=== PATIENT | female | born 1980 | race Caucasian/White ===

== ENCOUNTER 2017-06-25 20:58 | Inpatient (IN) | payer BC, OTHER ==
[2017-06-25] VITALS (15 sets, daily range): BP systolic 129–146; BP diastolic 63–79
[~2017-06-25] VITALS: Ht 167.6 cm; Wt 85.9 kg
[~2017-06-25 20:58] MED LIST: DCS100C PO; DOCU100C37 PO; IBP800T PO; IBUP-1780 PO; OXYC-272 PO; OXYC-465 PO; PREN1TAB39 PO
[2017-06-25] MEDS ORDERED: D5 LR IV SOLUTION 1,000 ML IV SCH (21:07)
[2017-06-25] MEDS ORDERED: SUFENTA 0.6MCG/ML BUPIVA 0.125 100 ML ONE ×2 (21:32→22:37)
[2017-06-25 21:41] LABS: BASOPHILS % (AUTO) 0 % (0-10); EOSINOPHILS # (AUTO) 0.1 10^3/uL (0.0-0.3); EOSINOPHILS % (AUTO) 1 % (0-10); HEMATOCRIT 33 % (35-52); HEMOGLOBIN 11.5 G/DL (11.5-16.0); LYMPHOCYTES # (AUTO) 2.2 X 10^3 (1.0-4.0); LYMPHOCYTES % (AUTO) 24 % (12-44); MEAN CORPUSCULAR HEMOGLOBIN 30 PG (25-34); MEAN CORPUSCULAR HGB CONC 35 G/DL (32-36); MEAN CORPUSCULAR VOLUME 86 FL (80-99); MEAN PLATELET VOLUME 10.4 FL (7.4-10.4); MONOCYTES # (AUTO) 0.9 X 10^3 (0.0-1.0); MONOCYTES % (AUTO) 10 % (0-12); NEUTROPHILS % (AUTO) 66 % (42-75); PLATELET COUNT 201 10^3/uL (130-400); RED BLOOD COUNT 3.88 10^6/uL (4.35-5.85); RED CELL DISTRIBUTION WIDTH 12.9 % (10.0-14.5); WHITE BLOOD COUNT 9.1 10^3/uL (4.3-11.0)
[2017-06-25] MEDS ORDERED: CATHETER FLUSH 10 ML SYR IV SCH (22:00)
[2017-06-25] MEDS ORDERED: OXYTOCIN/NORMAL SALINE 500 ML IV SCH (22:04)
--- NOTE | 2017-06-25 22:11 | History & Physical ---
History and Physical Date Seen by Provider: Jun 25, 2017 Time Seen by Provider: 22:09 this patient is a 36-year-old white female with a due date of June 29. She presented this evening with regular contractions pressure and pain. She denies rupture membranes or bleeding. GBS culture negative. She had no problems with this . Allergies are to sulfa drugs Medications are vitamins and zinc Medical and social histories are per the antepartum record HEENT exam is normal Neck is supple no lymphadenopathy no thyromegaly Abdomen is gravid soft nontender nondistended Extremities show no clubbing or cyanosis. There is no Homans sign. Pelvic exam per the nurse shows a cervix 3 cm dilated with a bulging bag and a vertex presentation Laboratory Tests 06/25/17 21:20 CBC was normal Assessment and plan term at 39+ weeks' gestation in a grand multipara. This patient requested an epidural which is now been placed. We anticipate a vaginal delivery. 39 week in labor Allergies and Home Medications Allergies Coded Allergies: Sulfa (Sulfonamides) (Verified Allergy, Unknown, 06/20/06) Home Medications Docusate Sodium 100 Mg Capsule, 100 MG PO BID, #60 Prescribed by: MARTHA SMITH on 02/03/15 1708 Ibuprofen 800 Mg Tablet, 800 MG PO Q6H, #60 Prescribed by: MARTHA SMITH on 02/03/15 1708 Oxycodone HCl/Acetaminophen 1 Each Tablet, 1-2 TAB PO Q4H PRN for PAIN, #60 Prescribed by: MARTHA SMITH on 02/03/15 1708 Vits W-Ca,Fe,Fa(<1MG) 1 Each Tablet, 1 EACH PO DAILY, (Reported) MARTHA REYES MD Jun 25, 2017 10:11 pm
[2017-06-25] MEDS ORDERED: TETANUS,DIPTH,PERTUSS P/F (BOOSTRIX) 0.5 ML VIAL IM ONE (22:15)
[2017-06-25] MEDS ORDERED: BENZOCAINE/MENTHOL (DERMOPLAST) 56 ML CAN TP PRN (22:15)
[2017-06-25] MEDS ORDERED: ONDANSETRON 4 MG/2 ML (SDV) Z0FRAN IVP PRN ×2 (22:15)
[2017-06-25] MEDS ORDERED: KETOROLAC 30 MG/ML VIAL IV SCH (22:15)
[2017-06-25] MEDS ORDERED: fentaNYL INJECTION 100 MCG/2 ML AMP ONE (22:37)
[2017-06-25] MEDS ORDERED: BUPIVACAINE 0.25% 30 ML (SENSORCAINE) VIAL ONE (22:37)
[2017-06-25] MEDS ORDERED: LACTATED RINGERS 1,000 ML IV SCH (23:02)
[2017-06-25] MEDS ORDERED: NALOXONE 0.4 MG/ML 1 ML (NARCAN) VIAL IV PRN ×2 (23:15)
[2017-06-25] MEDS ORDERED: ONDANSETRON 4 MG/2 ML (SDV) Z0FRAN IV PRN (23:15)
[2017-06-25] MEDS ORDERED: diphenhydrAMINE 50 MG/ML INJ (BENADRYL) IV PRN (23:15)
[2017-06-25] MEDS ORDERED: METOCLOPRAMIDE INJ 10 MG/2 ML (REGLAN) IV PRN (23:15)
[2017-06-25] MEDS ORDERED: EPIDURAL (SUFENTA 0.6MCG/ML BUPIVA 0.125%) 100 ML BAG EPI SCH (23:15)
[2017-06-26] VITALS (21 sets, daily range): BP systolic 108–145; BP diastolic 56–80
--- NOTE | 2017-06-26 05:21 | OPERATIVE REPORT ---
DATE OF SERVICE: 06/26/2017 The patient delivered by term spontaneous vaginal delivery of viable male infant with Apgars of 8 and 9 at 1 and 5 minutes respectively, weight of 9 pounds 2 ounces. Cord blood pH is 7.37 and a time of 0252. The patient delivered over an intact perineum with 2 pushes under epidural analgesia. The was bulb suctioned on delivery of the head and again on completion of delivery. The umbilical cord was doubly clamped. Father cut the cord, the baby was passed to mom's abdomen. The cervix, vagina, rectum and perineum were examined and found intact. The placenta delivered spontaneously Valenzuela and was normal with a 3-vessel cord. There was a 6 mm exophytic lesion at the junction of the right buttock with the right posterior inner thigh, that was consistent with an acrochordon. The patient had good analgesia at that point from her epidural and had requested removal of this lesion, which was done sharply. The lesion was consistent with an acrochordon. that site was touched with silver nitrate and covered with a sterile dressing. Sponge and needle counts were correct on completion of delivery and removal of the skin lesion. Estimated blood loss for the delivery was around 200 mL. The patient tolerated the delivery well and remained in the LDR for recovery. The baby remained with the mom. Job ID: [id number] DocumentID: [id number] Dictated Date: 06/26/2017 03:17:10 Information Security Director Date: 06/26/2017 05:20:13 Dictated By: MARTHA REYES MD MTDD
[2017-06-26] MEDS ORDERED: IBUPROFEN 800 MG (MOTRIN) TAB PO ONE ×2 (06:59→12:58)
[2017-06-26] MEDS: IBUPROFEN 800 MG (MOTRIN) TAB PO SCH ×3 (07:00→20:42)
--- NOTE | 2017-06-26 07:52 | Progress Note-Standard ---
Standard Progress Note Progress Notes/Assess & Plan Date Seen by Provider: Jun 26, 2017 Time Seen by Provider: 07:51 Progress/Assessment & Plan this patient is without complaint. She is ambulating, voiding, tolerating by mouth well, and has good pain control. She denies chest pain, denies shortness of breath, denies headache, denies nausea vomiting. the abdomen is benign. The fundus is firm below the umbilicus nontender. Extremities show no clubbing cyanosis. There is no Homans sign. Assessment and plan now by 3-4 hours. Patient is doing well. Patient will have routine convalescence. MARTHA REYES MD Jun 26, 2017 7:52 am
[2017-06-26] MEDS ORDERED: oxyCODONE/APAP 10/325MG (PERCOCET 10) TABLET PO PRN (08:30)
[2017-06-26] MEDS: DOCUSATE SODIUM 100 MG (COLACE) CAP PO SCH ×2 (09:10→20:41)
--- NOTE | 2017-06-26 11:09 | Anesthesia-Regional Post-Op ---
Regional Patient Condition Mental Status: Alert, Oriented x3 Circulation: Same as Pre-Op Headache: Absent Sensation: Full Recovery Motor Block: Absent Post Op Complications Complications None Follow Up Care/Instructions Patient Instructions None needed. Anesthesia/Patient Condition Patient is doing well, no complaints, stable vital signs, no apparent adverse anesthesia problems. No complications reported per nursing. NELL HEATH CRNA Jun 26, 2017 11:09
[2017-06-26] MEDS ORDERED: IBUP-1780 PO (14:48)
[2017-06-26] MEDS ORDERED: DOCU100C37 PO (14:48)
[2017-06-26] MEDS ORDERED: OXYC-465 PO (14:48)
--- NOTE | 2017-06-26 14:50 | Discharge Instructions ---
Discharge Instructions Discharge Medications New, Converted or Re-Newed RX: RX on Chart Patient Instructions Patient Instructions: as directed Return to The Hospital For: as directed Activity & Diet Discharge Diet: No Restrictions Activity as Tolerated: No Orders-Post D/C & Referrals Follow Up Appt: Call to make follow up appt. for patient in 4 weeks. Activity Per routine post vaginal delivery instructions. Diet as tolerated Patient may shower or tub bathe as desired. MARTHA REYES MD Jun 26, 2017 2:50 pm
--- NOTE | 2017-06-26 14:53 | Progress Note-Standard ---
Standard Progress Note Progress Notes/Assess & Plan Date Seen by Provider: Jun 26, 2017 Time Seen by Provider: 14:52 Progress/Assessment & Plan this patient is without complaint. She is ambulating, voiding, tolerating by mouth well, and has good pain control. She denies chest pain, denies shortness of breath, denies headache, denies nausea vomiting. the abdomen is benign. The fundus is firm below the umbilicus nontender. Extremities show no clubbing cyanosis. There is no Homans sign. Assessment and plan now by 3-4 hours. Patient is doing well. Patient will have routine convalescence. June 26, 2017 at 1452 p.m. Patient has requested circumcision. Dr. Soni consult me for the procedure. Circumcision was fully discussed including risks and complications recovery and follow-up for the baby. Mom's questions were answered and she did want Me proceed with the circumcision MARTHA REYES MD Jun 26, 2017 14:53
[2017-06-27 00:30] VITALS: BP 116/71
[2017-06-27] MEDS: IBUPROFEN 800 MG (MOTRIN) TAB PO SCH (02:51)
[2017-06-27 05:23] VITALS: BP 93/52
--- NOTE | 2017-06-27 07:22 | Progress Note-Standard ---
Standard Progress Note Progress Notes/Assess & Plan Date Seen by Provider: Jun 27, 2017 Time Seen by Provider: 07:21 Progress/Assessment & Plan this patient is without complaint. She is ambulating, voiding, tolerating by mouth well, and has good pain control. She denies chest pain, denies shortness of breath, denies headache, denies nausea vomiting. the abdomen is benign. The fundus is firm below the umbilicus nontender. Extremities show no clubbing cyanosis. There is no Homans sign. Assessment and plan now by 3-4 hours. Patient is doing well. Patient will have routine convalescence. June 26, 2017 at 1452 p.m. Patient has requested circumcision. Dr. Soni consult me for the procedure. Circumcision was fully discussed including risks and complications recovery and follow-up for the baby. Mom's questions were answered and she did want Me proceed with the circumcision June 27, 2017 Patient without complaint. She is ambulating, voiding, tolerating by mouth well has good pain control she is requesting discharge home. signs are stable. Patient is afebrile. Abdomen is benign. Fundus is firm below the umbilicus. Extreme show no clubbing cyanosis. There is no Homans sign Vital Signs Date Time Temp Pulse Resp B/P (MAP) Pulse Ox O2 Delivery O2 Flow Rate FiO2 06/27/17 05:23 98.2 60 17 93/52 (66) 98 Room Air 06/27/17 00:30 98.3 77 16 116/71 (86) 98 Room Air 06/26/17 20:40 98.2 69 18 124/78 (93) 98 Room Air 06/26/17 14:35 70 18 108/60 (76) Room Air 06/26/17 13:05 98.0 69 18 117/67 (84) 100 Room Air 06/26/17 09:00 98.1 69 20 129/72 (91) 100 Room Air assessment and plan day number 2 status post term spontaneous vaginal delivery doing well. Plan is for discharge home with follow-up in clinic Final Diagnosis repeat delivery MARTHA REYES MD Jun 27, 2017 7:22 am
[2017-06-27] MEDS: DOCUSATE SODIUM 100 MG (COLACE) CAP PO SCH (08:39)
[2017-06-27 08:52] VITALS: BP 117/68
[2017-06-27] MEDS ORDERED: TETANUS,DIPTH,PERTUSS P/F (BOOSTRIX) 0.5 ML VIAL IM ONE (09:42)
== END 2017-06-27 13:55 | disposition home or self-care (01) | DRG 775 ==
LOC: WSo 20:58 → LDRP 21:02 → WSo 21:08 → LDRP 06-26 09:35
PROVIDERS: ADMIT Obstetrics & Gynecology; ATTEND Obstetrics & Gynecology
PROC: 10E0XZZ Delivery of Products of Conception, External Approach (ICD-10-PCS; principal; 2017-06-26)
PROC: 0HB8XZZ Excision of Buttock Skin, External Approach (ICD-10-PCS; 2017-06-26)
DX: O99.72 Diseases of the skin and subcutaneous tissue complicating childbirth (principal); L91.8 Other hypertrophic disorders of the skin; Z37.0 Single live birth; Z3A.39 39 weeks gestation of pregnancy
CPT/HCPCS: 36415; 85025; 86850; 86900; 86901; 90715; 99212

== ENCOUNTER 2019-09-12 07:00 | Inpatient (IN) | payer OTHER ==
[~2019-09-12] VITALS: Ht 170.2 cm; Wt 78.7 kg
[2019-09-12] VITALS (34 sets, daily range): BP systolic 102–145; BP diastolic 56–85
--- NOTE | 2019-09-12 03:11 | Discharge Inst-Surgical ---
Discharge Inst-Surgical Depart Medication/Instructions New, Converted or Re-Newed RX: RX on Chart Consults/Follow Up Patient Instructions: As directed Orders & Referrals Follow Up Appt: Call to make follow up appt. for patient in 4 weeks. Activity Per routine post vaginal delivery instructions. Please call in RX to patient pharmacy. Diet as tolerated Patient may shower or tub bathe as desired. Activity Activity as Tolerated: No Diet Discharge Diet: No Restrictions MARTHA REYES MD Sep 12, 2019 03:11
--- NOTE | 2019-09-12 03:13 | History & Physical ---
History and Physical Date Seen by Provider: Sep 12, 2019 Time Seen by Provider: 07:50 This patient is a 39-year-old grand multipara, , who presents for induction of labor at 40+ weeks gestation. She denies rupture membranes or bleeding. She's had no problems with this . A GBS culture was negative after 35 weeks gestation. Allergies are sulfa drugs Medications are vitamins Medical social and surgical histories are per the antepartum record HEENT exam is normal Neck is supple no lymphadenopathy no thyromegaly Abdomen is gravid soft nontender nondistended Extremities show no clubbing or cyanosis. There is no Homans sign. Pelvic exam is pending Assessment and plan 39+ week gestation in a grand multipara admitted now for induction of labor 39+ week gestation admitted for induction of labor Allergies and Home Medications Allergies Coded Allergies: Sulfa (Sulfonamides) (Verified Allergy, Unknown, 06/20/06) Home Medications Docusate Sodium 100 Mg Capsule, 100 MG PO BID Prescribed by: MARTHA SMITH on 06/26/17 1448 Ibuprofen 800 Mg Tablet, 800 MG PO Q6H Prescribed by: MARTHA SMITH on 06/26/17 1448 Oxycodone HCl/Acetaminophen 1 Each Tablet, 1-2 TAB PO Q4H PRN for PAIN Prescribed by: MARTHA SMITH on 06/26/17 1448 Vits W-Ca,Fe,Fa(<1MG) 1 Each Tablet, 1 EACH PO DAILY, (Reported) Patient Home Medication List Home Medication List Reviewed: Yes MARTHA REYES MD Sep 12, 2019 03:13
--- NOTE | 2019-09-12 07:17 | NUR ---
CARMEN CAPPS presented to unit via ambulation from ED, accompanied by , for scheduled IOL. Pt. weighed, gowned, voided, and to bed. EFHM and TOCO applied, VS taken. Pt. oriented to bed controls, call light, TV, heat, and A/C controls.
[2019-09-12] MEDS ORDERED: OXYTOCIN PRE-MIX DRIP 500 ML IV ONE (07:21)
[2019-09-12] MEDS ORDERED: D5 LR IV SOLUTION 1,000 ML IV ONE (07:21)
[2019-09-12] MEDS ORDERED: OXYTOCIN PRE-MIX DRIP 500 ML IV SCH ×3 (07:53→14:16)
[2019-09-12] MEDS ORDERED: D5 LR IV SOLUTION 1,000 ML IV SCH (07:53)
[2019-09-12 08:20] LABS: BASOPHILS % (AUTO) 0 % (0-10); EOSINOPHILS % (AUTO) 1 % (0-10); HEMATOCRIT 37 % (35-52); HEMOGLOBIN 12.4 G/DL (11.5-16.0); LYMPHOCYTES # (AUTO) 1.5 X 10^3 (1.0-4.0); LYMPHOCYTES % (AUTO) 26 % (12-44); MEAN CORPUSCULAR HEMOGLOBIN 30 PG (25-34); MEAN CORPUSCULAR HGB CONC 34 G/DL (32-36); MEAN CORPUSCULAR VOLUME 88 FL (80-99); MEAN PLATELET VOLUME 10.5 FL (7.4-10.4); MONOCYTES # (AUTO) 0.5 X 10^3 (0.0-1.0); MONOCYTES % (AUTO) 8 % (0-12); NEUTROPHILS # (AUTO) 3.6 X 10^3 (1.8-7.8); NEUTROPHILS % (AUTO) 65 % (42-75); PLATELET COUNT 166 10^3/uL (130-400); RED CELL DISTRIBUTION WIDTH 12.8 % (10.0-14.5); WHITE BLOOD COUNT 5.6 10^3/uL (4.3-11.0)
[2019-09-12] MEDS ORDERED: DOCU-143 PO (09:01)
[2019-09-12] MEDS ORDERED: OXYC1TAB87 PO (09:01)
[2019-09-12] MEDS ORDERED: IBUP-1780 PO (09:01)
--- NOTE | 2019-09-12 10:41 | NUR ---
Anesthesia was notified of pt's request for epidural placement.
[2019-09-12] MEDS ORDERED: BUPIVACAINE 0.25% 30 ML (SENSORCAINE) VIAL ONE (10:47)
[2019-09-12] MEDS ORDERED: fentaNYL 2 mcg/ml BUPIVA 0.125 100 ML ONE (10:47)
[2019-09-12] MEDS ORDERED: fentaNYL INJECTION 100 MCG/2 ML AMP ONE (10:47)
--- NOTE | 2019-09-12 10:54 | NUR ---
here for epidural placement. Procedure explained, consent reviewed and signed by anesthesia. Questions answered to patient's satisfaction. Time out taken to verify correct patient/procedure. 1057- Patient up to side of bed, assisted into sitting position. Betadine prep done x3 and sterile drape applied. 1103- Local done, see anesthesia record. Test dose given, see anesthesia record for drug and dosage. Epidural catheter secured in place. Epidural placement complete. 1115- Assisted back into bed, monitors adjusted. Epidural dosed, see anesthesia record. Epidural of Fentanyl/Bupvicaine @12cc/hr stated per pump. Patient tolerated procedure well.
[2019-09-12] MEDS ORDERED: LACTATED RINGERS 1,000 ML IV ONE (11:33)
[2019-09-12] MEDS ORDERED: EPIDURAL (fentaNYL 2 MCG/ML BUPIVA 0.125%)100 ML BAG EPI SCH (11:45)
[2019-09-12] MEDS ORDERED: ONDANSETRON 4 MG/2 ML (SDV) Z0FRAN IV PRN (11:45)
[2019-09-12] MEDS ORDERED: CATHETER FLUSH 10 ML SYR IV PRN (11:45)
[2019-09-12] MEDS ORDERED: NALOXONE 0.4 MG/ML 1 ML (NARCAN) VIAL IV PRN (11:45)
[2019-09-12] MEDS ORDERED: diphenhydrAMINE 50 MG/ML INJ (BENADRYL) IV PRN (11:45)
--- NOTE | 2019-09-12 12:56 | NUR ---
was updated on SVE.
--- NOTE | 2019-09-12 13:35 | OPERATIVE REPORT ---
DATE OF SERVICE: 09/12/2019 DELIVERY NOTE The patient delivered a viable male with Apgars of pending, weight that is pending, cord blood pH is pending and a time of 13:12. The infant was delivered over an intact perineum under epidural analgesia. The infant was bulb suctioned on completion of delivery, the umbilical cord was doubly clamped, father cut the cord, the baby was passed to mom's abdomen. Cord bloods were obtained. The placenta delivered spontaneously. It was normal with a 3-vessel cord. It did appear to be circumvallate. It was sent to pathology for permanent section. The cervix, vagina, rectum, and perineum were examined and found intact. Estimated blood loss for the delivery was around 250 mL. The patient tolerated the delivery well and remained in the LDR for recovery. The baby remained with the mom. Job ID: [id number] DocumentID: [id number] Dictated Date: 09/12/2019 13:24:34 Steel Engraver Date: 09/12/2019 13:34:45 Dictated By: MARTHA REYES MD
[2019-09-12] MEDS ORDERED: ONDANSETRON 4 MG/2 ML (SDV) Z0FRAN IVP PRN (14:30)
[2019-09-12] MEDS ORDERED: oxyCODONE/APAP 5/325MG (PERCOCET 5) TABLET PO PRN (14:30)
[2019-09-12] MEDS ORDERED: MEASLES,MUMPS,RUBELLA 1 EA INJ SC ONE (14:30)
[2019-09-12] MEDS ORDERED: BENZOCAINE/MENTHOL (DERMOPLAST) 60 ML CAN TP PRN (14:30)
[2019-09-12] MEDS ORDERED: TETANUS,DIPTH,PERTUSS P/F (BOOSTRIX) 0.5 ML VIAL IM ONE (14:30)
--- NOTE | 2019-09-12 14:36 | OPERATIVE REPORT ---
DATE OF SERVICE: 09/12/2019 The patient delivered by term spontaneous vaginal delivery, a viable male infant with Apgars of 8 and 9 at one and five minutes respectively, weight of 8 pounds 14 ounces. Cord blood pH is pending and a time of 13:12 hours. The was delivered over an intact perineum under epidural analgesia. The was bulb suctioned on delivery of the head and again on completion of delivery. The umbilical cord was doubly clamped, father cut the cord, the baby was passed to mother's abdomen. Placenta delivered spontaneously Valenzuela. It was normal with 3-vessel cord. It was sent to pathology for permanent section. The cervix, vagina, rectum, and perineum were examined and found to be intact. Sponge and needle counts were correct on completion of the delivery. Estimated blood loss was around 250 mL. The patient tolerated the delivery well and remained in the LDR. The baby remained with the mother. Job ID: [id number] DocumentID: [id number] Dictated Date: 09/12/2019 14:28:57 Glass Installer Technician Date: 09/12/2019 14:36:12 Dictated By: MARTHA REYES MD
--- NOTE | 2019-09-12 15:19 | NUR ---
FFu/1. moderate rubra noted, no clots expressed. leighann-care offered. v-pad and panties in place. epidural catheter dc'd. colored tip intact.
--- NOTE | 2019-09-12 15:30 | NUR ---
pt transferred to room 309 via w/c with this RN, and @ side. pt stable with no sx's of distress noted. familiarized with room supplies. call light within reach. ice water given.
[2019-09-12] MEDS: KETOROLAC 30 MG/ML VIAL IVP SCH ×2 (16:03→21:03)
--- NOTE | 2019-09-12 18:00 | NUR ---
up to BR without assist.
--- NOTE | 2019-09-12 19:07 | NUR ---
report given to TANIA Schuster.
[2019-09-12] MEDS: DOCUSATE SODIUM 100 MG (COLACE) CAP PO SCH (21:03)
[2019-09-13 03:35] VITALS: BP 95/59
[2019-09-13] MEDS: KETOROLAC 30 MG/ML VIAL IVP SCH (03:41)
--- NOTE | 2019-09-13 07:45 | NUR ---
here. dismissal orders received.
--- NOTE | 2019-09-13 08:08 | Progress Note ---
Standard Progress Note Progress Notes/Assess & Plan Date Seen by a Provider: Sep 13, 2019 Time Seen by a Provider: 08:07 Progress/Assessment & Plan This patient is without complaints. She is ambulating, voiding, tolerating oral intake well has good pain control. Vital Signs 09/12/19 09/13/19 15:10 03:35 Temp 36.5 Pulse 63 Resp 18 B/P (MAP) 95/59 (71) Pulse Ox 98 O2 Delivery Room Air Vital signs are stable. Patient is afebrile. The abdomen is benign. Extremities show no clubbing cyanosis. There is no Homans sign. Assessment and plan day number 1 status post term spontaneous vaginal delivery at 40+ weeks gestation. Patient is doing well and requesting discharge home Final Diagnosis 40 week spontaneous vaginal delivery MARTHA REYES MD Sep 13, 2019 08:08
[2019-09-13 10:40] VITALS: BP 116/64
--- NOTE | 2019-09-13 10:40 | NUR ---
initial shift assessment completed, see interventions for further.
[2019-09-13] MEDS: DOCUSATE SODIUM 100 MG (COLACE) CAP PO SCH (10:45)
--- NOTE | 2019-09-13 10:46 | Anesthesia-Regional Post-Op ---
Regional Patient Condition Mental Status: Alert, Oriented x3 Circulation: Same as Pre-Op Headache: Absent Sensation: Full Recovery Motor Block: Absent Post Op Complications Complications None Follow Up Care/Instructions Patient Instructions None needed. Anesthesia/Patient Condition Patient is doing well, no complaints, stable vital signs, no apparent adverse anesthesia problems. No complications reported per nursing. ALF CORRIGAN CRNA Sep 13, 2019 10:46
--- NOTE | 2019-09-13 13:08 | NUR ---
Dismissal instructions given, verbalizes understanding. reviewed follow up appointment and Rx's. signature page signed, placed on chart.
[2019-09-13 14:00] VITALS: BP 111/56
--- NOTE | 2019-09-13 15:40 | NUR ---
pt dismissed to private vehicle via w/c with staff, and @ side. infant carried in mother's arms until dismissal, then secured in rear facing car seat. pt stable with no sx's of distress noted.
[2019-09-17] MEDS ORDERED: IBUPROFEN 800 MG (MOTRIN) TAB PO SCH (12:00)
== END 2019-09-13 15:40 | disposition home or self-care (01) | DRG 807 ==
LOC: LDRP 07:11
PROVIDERS: ADMIT Obstetrics & Gynecology; ATTEND Obstetrics & Gynecology
PROC: 10E0XZZ Delivery of Products of Conception, External Approach (ICD-10-PCS; principal; 2019-09-12)
PROC: 3E033VJ Introduction of Other Hormone into Peripheral Vein, Percutaneous Approach (ICD-10-PCS; 2019-09-12)
DX: O48.0 Post-term pregnancy (principal); Z37.0 Single live birth; Z3A.40 40 weeks gestation of pregnancy
CPT/HCPCS: 36415; 85025; 86850; 86900; 86901

== ENCOUNTER → 2019-09-30 | Outpatient (CLI) | payer OTHER ==
[~2019-09-30] MED LIST changes: +DOCU-143 PO; +OXYC1TAB87 PO
--- NOTE | 2019-09-30 08:45 | Diagnostic Imaging Report ---
PROCEDURE: US Gallbladder. TECHNIQUE: Multiple real-time grayscale images were obtained over the right upper quadrant in various projections. INDICATION: Right upper quadrant abdominal pain FINDINGS: Grayscale imaging of the gallbladder reveals no intraluminal filling defect. There is no gallbladder wall thickening or pericholecystic fluid. No intra or extrahepatic biliary ductal dilatation is identified. No pancreatic, right renal, abdominal aortic or inferior vena caval abnormality is documented. No ascites was noted. IMPRESSION: Unremarkable gallbladder ultrasound. Dictated by: Dictated on workstation # [id number]
== END ==
LOC: RAD 07:59
PROVIDERS: ATTEND Obstetrics & Gynecology
DX: R10.11 Right upper quadrant pain (principal)
CPT/HCPCS: 76705